=== PATIENT | female | born 1990 | race Caucasian/White ===

== ENCOUNTER 2019-05-29 18:03 | Observation (INO) ==
[2019-05-29 20:15] LABS: Basophils # 0.1 10*3/uL (0.0-0.2); Basophils % 1.3 % (0.0-0.8); Eosinophils # 0.1 10*3/uL (0.0-0.87); Eosinophils % 1.8 % (0.00-10.9); Hematocrit 40.3 VOL% (35.7-47.0); Hemoglobin 13.8 GM/DL (12.0-16.0); Immature Granulocytes % 0.2 %; Immature Granulocytes Absolute 0.01 #; Lymphocytes % 32.6 % (21.3-54.2); Mean Corpuscular HGB Conc 34.2 GM/DL (32-36); Mean Corpuscular Volume 85.9 FL (87-102); Monocytes % 7.7 % (1.7-12.7); Neutrophils % 56.4 % (38.7-73.9); Platelet Count 324 T/CUMM (130-400); Red Blood Count 4.69 MC/CUMM (3.8-5.5); Red Cell Distribution Width 13.2 % (9.3-17.3)
[2019-05-29 20:37] LABS: Bilirubin,Total 0.5 MG/DL (0.2-1.0); Calcium 8.8 MG/DL (8.5-10.1); Total Protein 7.7 G/DL (6.4-8.3)
[2019-05-30] MEDS ORDERED: SODIUM CHLORIDE 0.9% 1,000 ML IV STA (00:17)
[2019-05-30] MEDS ORDERED: diphenhydrAMINE 50 MG/1 ML VIAL IV STA (00:18)
[2019-05-30] MEDS ORDERED: METOPROLOL TARTRATE 5 MG/5 ML VIAL IV STA (01:48)
[2019-05-30 03:46] LABS: Apearance,Urine CLEAR (Clear); Bilirubin,Urine Negative (Negative); Blood, Urine Small mg/dL (Negative); Glucose,Urine (UA) Negative (Negative); Ketones,Urine 20 mg/dL (Negative); Mucus,Urine Occasional /LPF (Occasional); Nitrite,Urine Negative (Negative); Protein,Urine Negative; RBC,Urine 35 /HPF (0-4); Squamous Epithelial Cell,Urine Occasional /HPF (0-10); Urine Color Yellow (Yellow); Urine Specific Gravity > 1.060 (1.001-1.035); Urine Urobilinogen < 2.0 EU/DL (0.2-1.0); WBC,Urine 2 /HPF (0-6)
[2019-05-30 03:54] LABS: Barbiturates Screen,Urine Negative (Negative); Benzodiazepines Screen,Urine Negative (Negative); Cannabinoid Screen,Urine Negative (Negative); Opiate Screen,Urine Negative (Negative); Phencyclidine Screen,Urine Negative (Negative)
[2019-05-30] MEDS ORDERED: NABUMETONE 750 MG TABLET PO PRN ×2 (04:16→16:00)
[2019-05-30] MEDS ORDERED: ONDANSETRON 4 MG/2 ML VIAL IV PRN (06:20)
[2019-05-30] MEDS ORDERED: NICOTINE 21 MG/24 HR PATCH TRANSDERM PRN (06:20)
[2019-05-30] MEDS ORDERED: ACETAMINOPHEN 325 MG TABLET PO PRN (06:20)
[2019-05-30] MEDS ORDERED: diphenhydrAMINE CAP 25 MG CAPSULE PO PRN (06:20)
[2019-05-30 08:30] LABS: Risk Ratio 4.17; VLDL CHOLESTEROL 21.6 MG/DL
[2019-05-30] MEDS: METOPROLOL TARTRATE 25 MG TABLET PO SCH ×2 (11:49→21:13)
[2019-05-30] MEDS: COENZYME Q10 100 MG CAPSULE PO SCH ×2 (11:49→21:13)
[2019-05-30] MEDS ORDERED: ASPIRIN CHEW 81 MG TABLET PO ONE ×2 (17:16→17:31)
[2019-05-30] MEDS ORDERED: NITROGLYCERIN SL 0.4 MG TABLET SL PRN (17:16)
[2019-05-30] MEDS ORDERED: ASPIRIN 325 MG TABLET ONE (17:18)
[2019-05-30] MEDS ORDERED: NITROGLYCERIN SL 0.4 MG TABLET SL ONE (17:19)
[2019-05-30] MEDS ORDERED: ASPIRIN 325 MG TABLET PO ONE (17:33)
[2019-05-30] MEDS: MORPHINE 4 MG/1 ML VIAL IV PRN ×2 (17:39→21:19)
[2019-05-30] MEDS ORDERED: clonazePAM 0.5 MG TABLET PO ONE (23:49)
[2019-05-30] MEDS ORDERED: PROMETHAZINE 25 MG/1 ML VIAL IM ONE (23:51)
[2019-05-31 01:23] VITALS: BP 88/63
[2019-05-31] MEDS: MORPHINE 4 MG/1 ML VIAL IV PRN (08:39)
[2019-05-31] MEDS: COENZYME Q10 100 MG CAPSULE PO SCH (08:42)
[2019-05-31] MEDS: METOPROLOL TARTRATE 25 MG TABLET PO SCH (08:43)
[2019-05-31] MEDS ORDERED: POTASSIUM CHLORIDE 20 MEQ TABLET PO ONE (09:07)
[2019-05-31 10:11] LABS: Calcium 8.2 MG/DL (8.5-10.1); Osmolality,Calculated 279.3 MOS/KG (273-304)
[2019-05-31 10:15] LABS: Basophils # 0.1 10*3/uL (0.0-0.2); Basophils % 1.1 % (0.0-0.8); Eosinophils # 0.2 10*3/uL (0.0-0.87); Eosinophils % 5.1 % (0.00-10.9); Hematocrit 36.9 VOL% (35.7-47.0); Immature Granulocytes % 0.2 %; Immature Granulocytes Absolute 0.01 #; Lymphocytes # 1.3 10*3/uL (1.4-4.0); Lymphocytes % 29.2 % (21.3-54.2); Mean Corpuscular HGB Conc 32.5 GM/DL (32-36); Mean Corpuscular Volume 89.8 FL (87-102); Mean Platelet Volume 11.4 FL (9.6-12.0); Monocytes % 7.5 % (1.7-12.7); Neutrophils % 56.9 % (38.7-73.9); Red Blood Count 4.11 MC/CUMM (3.8-5.5); Red Cell Distribution Width 13.6 % (9.3-17.3); White Blood Count 4.5 T/CUMM (4-12)
[2019-05-31 10:28] LABS: Platelet Count 249 T/CUMM (130-400)
== END 2019-05-31 15:50 | disposition home or self-care (01) ==
LOC: N.EDINP 18:03 → N.ED 18:03 → N.4E 05-30 10:39
PROVIDERS: ADMIT Family Medicine; ATTEND Family Medicine